=== PATIENT | female | born 1970 | race Caucasian/White ===

== ENCOUNTER 2018-11-29 07:31 | Outpatient (CLI) | payer OTHER ==
--- NOTE | 2018-11-29 09:41 | US ---
EXAM: Renal artery Doppler ultrasound. HISTORY: Hypertension, uncontrolled COMPARISON: None TECHNIQUE: Renal artery Doppler ultrasound was performed. Duplex imaging was performed with color, holloway-scale and Doppler imaging. FINDINGS: The aorta and inferior vena cava are patent. The aorta measures 1.3 cm at the level of the renal art eries. Peak systolic velocity in the aorta is 0.4 cm/sec. The right kidney measures 11.2 cm in length. No hydronephrosis. Peak systolic velocities in the kathi n renal artery at the ostium, midportion, and renal hilum are 0.7, 1.1, and 0.4 cm/sec respectively. These values are normal. Doppler wave forms are normal. The arcuate artery resistive index measure s 0.74. This value is normal. Color flow in the right renal vein. The left kidney measures 11.7 cm in length. No hydronephrosis. Peak systolic velocities in the main renal artery at the ostium, midportion, and renal hilum are 0.3 , 0.8 , and 1.1 cm/sec respectively. These values are normal. Doppler wave forms are normal. The arcuate artery resistive index measur es 0.67. This value is normal. Color flow in the left renal vein. IMPRESSION: No evidence of renal artery stenosis.
--- NOTE | 2018-11-29 09:51 | US ---
EXAM: Renal ultrasound HISTORY: Hypertension, uncontrolled COMPARISON: None TECHNIQUE: Renal ultrasound was performed FINDINGS: Right kidney measures 4.9 x 5.0 x 11.2 cm. Left kidney measures 5.4 x 4.4 x 11.2 cm. Roberto al cortical echogenicity is normal. No hydronephrosis or renal calculus large enough to cause acoust ic shadowing. Bladder only minimally distended and poorly evaluated. IMPRESSION: Sonographically normal kidneys.
== END 2018-11-29 07:32 | disposition home or self-care (01) ==
LOC: RAD 07:31
PROVIDERS: ATTEND Internal Medicine
DX: I10 Essential (primary) hypertension (principal)

== ENCOUNTER 2018-12-06 06:59 | Outpatient (CLI) ==
--- NOTE | 2018-12-06 10:46 | ECHO2D ---
Date of Exam: 12/06/2018 Ordering Physician: GORAN SWARTZ MD Room #: OP Reason for Echo: SHORT OF BREATH, CHEST PAIN, HYPERTENSION M-Mode Normal Adult Results LV Dimensions Normal Adult Results AoV Opening excursions >1.6 >1.6 LVEDD-base- 3.5-5.8 4.6 Ao root dimensions 2.0-3.7 3.2 LVESD-base- 3.1-4.6 L. Atrium dimensions 1.9-3.8 3.7 Post. Wall thickness 0.8-1.1 1.0 IV septum (thickness) 0.7-1.2 1.0 Post. Wall excursion 0.72-1.3 NORMAL Septal motion NORMAL Systolic motion R. Ventricular cavity 1.5-2.0 NORMAL LVEF 60% 63% Paradoxical septal wall motion NORMAL 2-D : 2-D M Mode Echocardiogram was performed using apical four chamber and left parasternal long and short axis views. Mitral, tricuspid and aortic valves appear to be normal. Contractility of the left ventricle seems to be normal, so is the cavity size. Left atrial cavity size and aortic root appear to be normal. There is no pericardial effusion. There is no thrombus noted in the left ventricular or left aortic cavity. No mitral valve prolapse noted. M-MODE: MV: NORMAL AV: NORMAL TV: NORMAL PV: NORMAL CHAMBER SIZE: NORMAL WALL MOTION: NORMAL PERICARDIUM: NORMAL INTERPRETATION: 1. NORMAL 2D 'M' MODE ECHO MTDD
== END 2018-12-06 07:00 | disposition home or self-care (01) ==
LOC: CAR 06:59
PROVIDERS: ATTEND Internal Medicine
DX: R06.02 Shortness of breath (principal); R07.9 Chest pain, unspecified; I10 Essential (primary) hypertension

== ENCOUNTER 2018-12-21 06:52 | Outpatient (CLI) | payer OTHER ==
--- NOTE | 2018-12-21 09:53 | NM ---
Exam: Cardiac stress test with SPECT imaging. Reason for exam: Chest pain Comparison: 07/16/2012 Date of exam: 12/21/2018 Radiopharmaceutical: Rest: 3.5mCi thallium-201 i.v. Stress: 25.0mCi Tc-99m Sestamibi i.v. Exercise stress FINDINGS: Standard myocardial perfusion images were obtained after injection of technetium 99m sesta mibi under resting conditions The patient was then stressed with Isiah treadmill protocol Please see separate report by performing physician for details of the stress protocol Standard myocardial perfusion images were obtained after injection of technetium 99m sestamibi under stress conditions. Gated images were performed to evaluate left ventricular ejection fraction The stress perfusion images demonstrate uniform distribution of activity in the left ventricular myoc ardium. The rest perfusion images demonstrate uniform distribution of activity without evidence of significan t redistribution or ischemia. The left ventricular ejection fraction is calculated to be 87%. Impression: 1. Normal appearing left ventricular myocardial perfusion without evidence of significant ischemia 2. Left ventricular ejection fraction measures 87%.
--- NOTE | 2018-12-23 10:12 | STRESSSESS ---
Date of Test: 12/21/18 Ordering Physician: DR. GORAN SWARTZ Occupation: NURSE Reason for Exam: CHEST PAIN, SOB, HTN Smoking History: NONE Height: 62" Weight: 170 LBS Current Medications: ZIAC, LISINOPRIL, ESTROGEN, ADEROL, SIMVASTATIN, VIT D, WELLBUTRIN Target Heart Rate: 147/174 Resting EKG: SINUS RHYTHM/ NO ACUTE CHANGES S-T SEGMENT STAGE MPH/GRADE HEART RATE BPM BLOOD PRESSURE MMHG RHYTHM +/- ELEVATION DEPRESSION SYMPTOMS AT REST 83 BPM 136/86 MMHG SR X NONE 1 1.7/10% 117 BPM 170/80 MMHG SR X NONE 2 2.5/12% 138 BPM 190/88 MMHG SR X NONE 3 3.4/14% 4 4.2/16% 5 5.0/18% Immediately After 146 BPM SR X SHORT OF AIR Minutes Post Exercise 5:00 95 BPM 140/86 MMHG SR X NONE Minutes Post Exercise DURATION OF EXERCISE: 7:00 MAXIMUM HEART RATE REACHED: 146 BPM REASON FOR TERMINATION: SHORT OF AIR 99% OXYGEN SATURATION WITH EXERCISE ON ROOM AIR METS 10.1 INTERPRETATION: 1: BORDERLINE POSITIVE STRESS TEST FOR ISCHEMIA 2: NO CHEST PAIN OR DISCOMFORT 3: NO ARRHYTHMIAS 4. BLOOD PRESSURE RESPONSE: HYPERTENSION WITH EXERCISE 5. SESTAMIBI TO FOLLOW MTDD
== END 2018-12-21 06:53 | disposition home or self-care (01) ==
LOC: CAR 06:52
PROVIDERS: ATTEND Internal Medicine
DX: R07.9 Chest pain, unspecified (principal); R06.02 Shortness of breath; I10 Essential (primary) hypertension
CPT/HCPCS: 93017; 93018

== ENCOUNTER 2019-03-25 07:38 | Outpatient (CLI) | payer OTHER ==
--- NOTE | 2019-03-25 11:49 | CT ---
EXAM: CT of the abdomen and pelvis with and without contrast (CT urogram) History: Hematuria. Comparison: Renal ultrasound 11/29/2018 Technique: Multiplanar CT images through the abdomen pelvis were obtained with and without the admin istration of IV contrast. MIP images and 3-D reconstructions were also acquired. Findings: Lung bases are clear. Heart size is upper limits of normal. No acute osseous abnormaliti es. The liver is fatty. Status post cholecystectomy. No renal calculi and no hydronephrosis. No ureter al calculi. No focal liver or splenic lesions. No renal masses. Nonspecific mild bilateral perinep hric stranding. There is no definite evidence for pyelonephritis. Adrenal glands are unremarkable. Pancreas is within normal limits. No abdominal aortic aneurysm. No bowel obstruction. The appendi x is normal. No bladder wall thickening. No perirectal inflammation. Scattered colonic stool. No free air and no ascites. Status post hysterectomy. No enlarged lymph nodes. Focal skin thickening and mild subcutaneous inflammation within the right groin. Impression: 1. No renal or ureteral stones and no hydronephrosis. 2. No evidence for pyelonephritis. 3. Mild nonspecific bilateral perinephric stranding. 4. No bladder wall thickening. 5. Hepatic steatosis. 6. Cellulitis within the right groin. No abscess
[2019-03-25 16:15] VITALS: BMI 31.1
== END 2019-03-25 07:39 | disposition home or self-care (01) ==
LOC: RAD 07:38
PROVIDERS: ATTEND Internal Medicine
DX: R31.9 Hematuria, unspecified (principal); R10.9 Unspecified abdominal pain
CPT/HCPCS: 36415; 82565